=== PATIENT | female | born 1970 | race Caucasian/White ===

== ENCOUNTER 2019-10-14 18:28 | Emergency (ER) | payer MEDICAID, SELFPAY ==
[~2019-10-14] VITALS: Ht 165.1 cm; Wt 90.7 kg
[2019-10-14 18:42] VITALS: BP 102/69
--- NOTE | 2019-10-14 18:46 | NUR ---
TENT OF2
--- NOTE | 2019-10-14 19:02 | NUR ---
COVID SWAB DONE.
--- NOTE | 2019-10-14 19:02 | NUR ---
C/O FEVER, COUGH, BODY ACHES X 1 WEEK. MED HX:DENIES
--- NOTE | 2019-10-14 19:40 | NUR ---
ERMD AT BEDSIDE FOR EVALUATION
[2019-10-14 20:15] VITALS: BP 122/63
--- NOTE | 2019-10-14 20:15 | NUR ---
Patient discharged with v/s stable. Written and verbal after care instructions given and explained. Patient verbalized understanding. Ambulatory with steady gait. All questions addressed prior to discharge. Advised to follow up with PMD.
== END 2019-10-14 20:15 | disposition home or self-care (01) ==
LOC: MED 18:28
DX: R05 Cough (principal); Z20.828 Contact with and (suspected) exposure to other viral communicable diseases; J02.9 Acute pharyngitis, unspecified
CPT/HCPCS: 71045; 99284; U0003